=== PATIENT | female | born 1980 | race Caucasian/White ===

== ENCOUNTER 2019-07-29 12:39 | Emergency (ER) | payer MEDICAID ==
[~2019-07-29] VITALS: Ht 162.6 cm; Wt 73.0 kg
[2019-07-29] MEDS ORDERED: KETOROLAC 30MG/ML VIAL IM ONE (13:15)
[2019-07-29 13:38] VITALS: BP 114/55
== END 2019-07-29 14:22 | disposition home or self-care (01) ==
LOC: ER 12:39
DX: H60.93 Unspecified otitis externa, bilateral (principal); R03.0 Elevated blood-pressure reading, without diagnosis of hypertension
CPT/HCPCS: 81025; 96372; 99283; J1885

== ENCOUNTER 2021-10-18 15:14 | Emergency (ER) | payer MEDICAID ==
[~2021-10-18] VITALS: Ht 165.1 cm; Wt 75.0 kg
[2021-10-18] MEDS ORDERED: KETOROLAC 30MG/ML VIAL IV STA (18:32)
[2021-10-18] MEDS ORDERED: ACETAMINOPHEN 325MG TABLET PO STA (18:32)
[2021-10-18] MEDS ORDERED: SODIUM CHLORIDE 0.9% 1,000 ML IV ONE (18:45)
[2021-10-18] MEDS ORDERED: CEFTRIAXONE 1 G PREMIX 50 ML IV ONE (18:45)
[2021-10-18 19:18] LABS: BASOPHILS % 0.3 % (0.0-2.0); EOSINOPHILS % 0.1 % (0.0-5.0); HEMATOCRIT. 38.1 % (36.0-48.0); HEMOGLOBIN. 12.5 g/dL (12.0-16.0); LYMPHOCYTES % 15.6 % (20.0-50.0); MEAN CORPUSCULAR HEMOGLOBIN 29.6 pg (28.0-32.0); MEAN CORPUSCULAR VOLUME 90.4 fL (81.0-99.0); MEAN PLATELET VOLUME 6.8 fl (7.4-10.4); MONOCYTES % 8.8 % (2.0-8.0); NEUTROPHILS % 75.2 % (40.0-76.0); PLATELET 330 x1000/uL (130-400); RED BLOOD CELL COUNT 4.22 mill/uL (4.2-5.4); RED CELL DISTRIBUTION WIDTH 13.5 % (11.6-14.6)
[2021-10-18 19:20] VITALS: BP 125/56
[2021-10-18 19:25] LABS: HCG SCREEN NEGATIVE
[2021-10-18 19:29] LABS: CHLORIDE 100 mEq/L (98-107)
[2021-10-18 21:05] LABS: CLARITY URINE CLOUDY (CLEAR); COLOR URINE YELLOW (YELLOW); KETONES URINE TRACE (NEGATIVE); LEUKOCYTE ESTERASE URINE 2+ (NEGATIVE); NITRITE URINE POSITIVE (NEGATIVE); OCCULT BLOOD URINE 1+ (NEGATIVE); PH URINE 5.5 (4.5-8.0); PROTEIN URINE 1+ (NEGATIVE); SPECIFIC GRAVITY URINE 1.019 (1.005-1.030); UROBILINOGEN URINE 0.2 E.U./dL (0.2-1.0)
[2021-10-18] MEDS ORDERED: IBUP-2028 MT (21:20)
[2021-10-18] MEDS ORDERED: CEPH500C2 MT (21:20)
== END 2021-10-18 21:54 | disposition home or self-care (01) ==
LOC: ER 15:14
DX: N12 Tubulo-interstitial nephritis, not specified as acute or chronic (principal); E87.1 Hypo-osmolality and hyponatremia
CPT/HCPCS: 36415; 80053; 81003; 83605; 84145; 84703; 85025; 87040; 87086; 96365; 96375; 99284; J0696; J1885; J7030

== ENCOUNTER 2024-11-27 01:49 | Emergency (ER) | payer MEDICAID ==
[~2024-11-27] VITALS: Ht 152.4 cm; Wt 75.3 kg
[~2024-11-27 01:49] MED LIST: CEPH500C2 MT; IBUP-2028 MT
[2024-11-27 02:01] VITALS: O2SAT 99
[2024-11-27] MEDS: KETOROLAC 15MG/ML VIAL IM ONE (03:07)
[2024-11-27] MEDS ORDERED: LIDO-53 TP (04:05)
[2024-11-27] MEDS ORDERED: NAPR-1176 MT (04:05)
[2024-11-27 04:20] VITALS: BP 128/72; PULSE 61; RESP 60; TEMP 36.7; O2SAT 98
== END 2024-11-27 04:29 | disposition home or self-care (01) ==
LOC: ER 01:49
DX: M79.671 Pain in right foot (principal); Z79.1 Long term (current) use of non-steroidal anti-inflammatories (NSAID)
CPT/HCPCS: 99283; 73630; 96372; J1885